=== PATIENT | female | born 1965 | race Caucasian/White ===

== ENCOUNTER 2017-09-28 19:55 | Emergency (ER) | payer OTHER ==
[~2017-09-28] VITALS: Ht 167.6 cm; Wt 99.8 kg
[~2017-09-28 19:55] MED LIST: LISINOPRIL-HCT1 EACH PO; METFORMIN HCL1000 MG PO; XARELTO20 MG PO
[2017-09-28 22:12] LABS: HEMATOCRIT 41.2 % (36.0-46.0); HEMOGLOBIN 13.9 G/DL (11.9-15.5); MCH 32.9 PG (29.0-34.0); MCHC 33.7 G/DL (30.0-36.0); MCV 97.6 FL (83-99); PLATELET COUNT 374 K/uL (156-360); RBC DIS.WIDTH-CV 12.6 % (11.8-14.6); RBC DIS.WIDTH-SD 45.3 % (39-53); RED BLOOD COUNT 4.22 M/uL (3.80-5.20); WHITE BLOOD COUNT 11.3 K/uL (4.1-10.2)
[2017-09-28 22:32] LABS: TROP-I INTERPRETATION NEGATIVE; TROPONIN-I 0.01 ng/mL (0.0-0.30)
[2017-09-28 22:41] LABS: CHLORIDE 101 MEQ/L (99-109); POTASSIUM 3.9 MEQ/L (3.7-5.4); SODIUM 137 MEQ/L (136-147)
[2017-09-28 22:47] LABS: CREATININE 0.8 MG/DL (0.6-1.3); GFR ESTIMATE (CALCULATED) > 59 mL/min/; GLUCOSE 108 mg/dL (70-99); UREA NITROGEN (BUN) 9 mg/dL (9-23)
[2017-09-28 23:27] VITALS: BP 144/97
== END 2017-09-28 23:35 | disposition home or self-care (01) ==
LOC: EME 19:55
PROVIDERS: Nurse Practitioner Family
DX: R20.2 Paresthesia of skin (principal); I82.C22 Chronic embolism and thrombosis of left internal jugular vein; M47.892 Other spondylosis, cervical region; I10 Essential (primary) hypertension; E11.9 Type 2 diabetes mellitus without complications; Z79.84 Long term (current) use of oral hypoglycemic drugs
CPT/HCPCS: 71046; 72040; 80048; 84484; 85027; 93005; 93971; 99281; 99284